=== PATIENT | female | born 1980 | race Caucasian/White ===

== ENCOUNTER → 2019-05-12 16:37 | Outpatient (CLI) | payer OTHER, SELFPAY ==
--- NOTE | 2019-05-12 16:41 | DI.MRI.S_ITS ---
PROCEDURE: MR KNEE RT WO CON INDICATIONS: Knee pain TECHNIQUE: Noncontrast sagittal PD fast spin echo and T2 fast spin echo with fat saturation, sagittal 3-D FLASH with fat saturation; coronal T1 spin echo and PD fast spin echo with fat saturation, and axial PD fast spin echo with fat saturation through the knee. COMPARISON: None. FINDINGS: Image quality: Excellent. Menisci: Medial meniscus intact. Lateral meniscus intact. Cruciate ligaments: Anterior cruciate ligament appears intact. Posterior cruciate ligament appears intact. Medial structures: The medial collateral ligament appears intact. Semimembranosus tendon appears intact. Visualized portions of the pes anserinus tendons appear normal. No abnormal bursal fluid. Lateral structures: The lateral collateral ligament intact. Biceps femoris tendon appears intact. Popliteus tendon grossly unremarkable. Iliotibial band appears intact. Anterior structures: Quadriceps tendon intact. Medial and lateral patellofemoral ligaments intact. There is mild patellar tendinopathy. Prepatellar and superficial infrapatellar subcutaneous edema/fluid. Bones and cartilage: No focal marrow contusion or discrete low signal fracture line. Within the medial compartment, minimal intrasubstance signal change however no focal defect of the cartilage Within the lateral compartment, tibial cartilage ligaments or central intrasubstance signal change no focal defect. Within the patellofemoral compartment, cartilage appears intact Joint space: No pathologic joint effusion. Trace Prado's cyst of unknown clinical significance. No specific evidence of intra-articular loose body. IMPRESSION: Mild patellar tendinopathy with adjacent soft tissue edema and fluid Minimal knee joint degeneration Dictated by: Robert Mancilla M.D. on 05/15/2019 at 8:14 Approved by: Robert Mancilla M.D. on 05/15/2019 at 8:20
== END ==
PROVIDERS: Family Provider Family Medicine; Visit Provider Student in an Organized Health Care Education/Training Program
DX: M25.561 Pain in right knee (principal); M67.961 Unspecified disorder of synovium and tendon, right lower leg
CPT/HCPCS: 73721

== ENCOUNTER → 2020-03-22 11:39 | Outpatient (CLI) | payer OTHER, SELFPAY ==
[2020-03-22 12:39] LABS: COVID19 -Nasal RAPID Negative (Negative)
== END ==
PROVIDERS: Family Provider Family Medicine; PCP Student in an Organized Health Care Education/Training Program; Visit Provider Student in an Organized Health Care Education/Training Program
DX: Z11.59 Encounter for screening for other viral diseases (principal)
CPT/HCPCS: 87635

== ENCOUNTER → 2022-03-09 09:21 | Outpatient (CLI) | payer BC, SELFPAY ==
--- NOTE | 2022-03-09 09:26 | DI.RAD.S_ITS ---
PROCEDURE: XR FINGER LT MIN 2V INDICATIONS: left ring finger pain TECHNIQUE: PA hand, 2 views of the ring finger acquired. COMPARISON: None. FINDINGS: Bones: There is a small minimally displaced intra-articular fracture at the dorsal base of the 4th distal phalanx involving the extensor tendon attachment. No suspicious bony lesions. Soft tissues: No suspicious soft tissue calcifications. IMPRESSION: Small minimally displaced intra-articular fracture at the dorsal base of the 4th distal phalanx. Approved by: Braulio Claire M.D. on 03/09/2022 at 11:27
== END ==
PROVIDERS: Family Provider Family Medicine; PCP Student in an Organized Health Care Education/Training Program; Referring Provider Internal Medicine; Visit Provider Internal Medicine
DX: S62.665A Nondisplaced fracture of distal phalanx of left ring finger, initial encounter for closed fracture (principal); M79.645 Pain in left finger(s); X58.XXXA Exposure to other specified factors, initial encounter
CPT/HCPCS: 73140